=== PATIENT | male | born 1950 | race Caucasian/White ===

== ENCOUNTER 2018-04-23 15:46 | Outpatient (CLI) | payer MEDICARE ==
--- NOTE | 2018-04-23 16:23 | RAD ---
RIGHT ANKLE THREE VIEW 04/23/18 HISTORY: Gout. Fever. COMPARISON: None. FINDINGS: There is extensive bimalleolar edema. Evidence of old injury of both the medial and lateral ligamento us complexes. Large joint effusion. Large dorsal and small plantar calcaneal spur. IMPRESSION: 1. 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 No a cute fracture or malalignment. 2. 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 POS: [facility]
== END 2018-04-23 15:47 | disposition home or self-care (01) ==
LOC: MADRAD 15:46
PROVIDERS: ATTEND Nurse Practitioner Family
DX: M10.9 Gout, unspecified (principal); M25.471 Effusion, right ankle; R50.9 Fever, unspecified